=== PATIENT | male | born 1955 | race Caucasian/White ===

== ENCOUNTER 2016-10-06 02:33 | Emergency (ER) | payer OTHER ==
[~2016-10-06] VITALS: Ht 170.2 cm; Wt 77.3 kg
[~2016-10-06 02:33] MED LIST: MEDI-FIRST ASP325 MG PO; MULTAQ400 M1 PO; NO HOME MEDICATIONS
[2016-10-06] MEDS ORDERED: TOPROL XL 25MG25 MG PO (03:01)
[2016-10-06] MEDS ORDERED: LIPITOR 10M10 MG/TAB PO (03:01)
[2016-10-06] MEDS ORDERED: FLECAINIDE ACE150 MG PO (03:02)
[2016-10-06] MEDS ORDERED: XARELTO20 MG PO (03:02)
[2016-10-06 04:11] VITALS: BP 151/84
== END 2016-10-06 04:11 | disposition home or self-care (01) ==
LOC: ED 02:33
DX: R07.89 Other chest pain (principal); Z79.01 Long term (current) use of anticoagulants; I48.91 Unspecified atrial fibrillation; Z86.73 Personal history of transient ischemic attack (TIA), and cerebral infarction without residual deficits; E78.5 Hyperlipidemia, unspecified

== ENCOUNTER → 2021-10-18 | Outpatient (CLI) | payer MEDICARE ==
[~2021-10-18] MED LIST changes: +FLECAINIDE ACE150 MG PO; +LIPITOR 10M10 MG/TAB PO; +TOPROL XL 25MG25 MG PO; +XARELTO20 MG PO
== END ==
LOC: RAD 11:00
DX: N50.3 Cyst of epididymis (principal)